=== PATIENT | male | born 2000 | race Caucasian/White ===

== ENCOUNTER 2025-09-17 20:42 | Emergency (ER) | payer OTHER ==
[~2025-09-17] VITALS: Ht 177.8 cm; Wt 90.0 kg
[2025-09-17] MEDS: LORAZEPAM 2MG/ML UD SYRINGE IM NR (21:00)
[2025-09-17] MEDS: DIPHENHYDRAMINE 50MG/ML VIAL IM ONE (21:26)
[2025-09-17] MEDS: HALOPERIDOL LACTATE 5MG/ML VIAL IM ONE (21:26)
[2025-09-17 22:45] LABS: BASOPHILS % 0.6 % (0.0-2.0); EOSINOPHILS % 0.9 % (0.0-5.0); HEMATOCRIT. 38.9 % (42.0-52.0); HEMOGLOBIN. 13.2 g/dL (14.0-18.0); LYMPHOCYTES % 15.9 % (20.0-50.0); MEAN PLATELET VOLUME 8.1 fl (7.4-10.4); MONOCYTES % 6.9 % (2.0-8.0); NEUTROPHILS % 75.7 % (40.0-76.0); PLATELET 193 x1000/uL (130-400); RED BLOOD CELL COUNT 4.30 mill/uL (4.7-6.1); RED CELL DISTRIBUTION WIDTH 13.2 % (11.6-14.6)
[2025-09-17 23:00] LABS: CREATININE 1.1 mg/dL (0.6-1.3); UREA NITROGEN BLOOD 19 mg/dL (9-23)
[2025-09-17 23:01] LABS: ETHANOL BLOOD < 10 mg/dL (<10)
[2025-09-17 23:02] LABS: ASPARTATE AMINOTRANSFERASE 54 IU/L (<34)
[2025-09-17 23:03] LABS: BILIRUBIN DIRECT 0.5 mg/dL (<=3.0); BILIRUBIN TOTAL 1.4 mg/dL (0.1-1.0); PROTEIN TOTAL 7.1 g/dL (6.0-8.3)
[2025-09-17 23:08] LABS: *AMPHETAMINES SCREEN URINE PRESUMPTIVE POSITIVE (NEGATIVE); *BARBITURATES SCREEN URINE NEGATIVE (NEGATIVE); *BENZODIAZEPINES SCREEN URINE NEGATIVE (NEGATIVE); *COCAINE SCREEN URINE NEGATIVE (NEGATIVE); CANNABINOID URINE SCREEN PRESUMPTIVE POSITIVE (NEGATIVE); ECSTASY MDMA SCREEN URINE CONF.TEST INDICATED (NEGATIVE); METHADONE URINE SCREEN NEGATIVE (NEGATIVE); OPIATES URINE SCREEN NEGATIVE (NEGATIVE); PHENCYCLIDINE URINE SCREEN NEGATIVE (NEGATIVE)
[2025-09-17 23:11] LABS: COLOR URINE YELLOW (YELLOW); GLUCOSE URINE NEGATIVE (NEGATIVE); KETONES URINE 1+ (NEGATIVE); OCCULT BLOOD URINE TRACE (NEGATIVE); PH URINE 5.5 (4.5-8.0); PROTEIN URINE 1+ (NEGATIVE); SPECIFIC GRAVITY URINE 1.040 (1.005-1.030)
[2025-09-17 23:12] LABS: LEUKOCYTE ESTERASE URINE NEGATIVE (NEGATIVE); NITRITE URINE NEGATIVE (NEGATIVE); UROBILINOGEN URINE 1.0 E.U./dL (0.2-1.0)
[2025-09-17 23:17] LABS: CLARITY URINE SL HAZY (CLEAR)
[2025-09-17 23:18] LABS: BACTERIA URINE TRACE; RBC URINE 0-2 /hpf (0-2); SQUAMOUS EPITHELIAL CELL URINE RARE /lpf (RARE/1+); WBC URINE NONE SEEN /hpf (0-2)
[2025-09-17 23:19] LABS: MUCUS URINE 1+ /lpf (NONE/TRACE)
[2025-09-17] MEDS: POTASSIUM CHLORIDE 20MEQ TABLET SR PO ONE (23:45)
[2025-09-18] MEDS: KCL 10MEQ/50ML PREMIX 50 ML IV ONE (00:25)
[2025-09-18] MEDS: ZIPRASIDONE MESYLATE 20MG/VIAL IM ONE (00:29)
[2025-09-18 01:39] VITALS: O2SAT 100
[2025-09-18] MEDS: KCL 20MEQ/100ML PREMIX 100 ML IV SCH (01:51)
[2025-09-18 08:44] LABS: CREATININE 1.0 mg/dL (0.6-1.3)
[2025-09-18 08:45] LABS: UREA NITROGEN BLOOD 15 mg/dL (9-23)
[2025-09-18 14:10] VITALS: BP 130/79; PULSE 93; RESP 19; TEMP 36.8; O2SAT 100
[2025-09-18] MEDS ORDERED: RISPERIDONE 0.5MG TABLET PO SCH (21:00)
== END 2025-09-18 15:47 ==
LOC: ER 20:42
DX: F19.10 Other psychoactive substance abuse, uncomplicated (principal); R41.0 Disorientation, unspecified; E87.6 Hypokalemia; R45.851 Suicidal ideations; F31.9 Bipolar disorder, unspecified; Z79.899 Other long term (current) drug therapy; Z20.822 Contact with and (suspected) exposure to COVID-19
CPT/HCPCS: 80076; 80305; 80048 ×2; 81003; 80307; 80329; 80320; 83735; 85025; 36415 ×2; 93005; 96372; 99291; 87426; 84132; 96365; 96366; J1200; J1630; J2060; Z7610 ×3; J3480 ×2; J3486; G0480